=== PATIENT | male | born 1940 | race Caucasian/White ===

== ENCOUNTER → 2017-06-09 | Outpatient (CLI) | payer MEDICARE | END | disposition home or self-care (01) | LOC: Rad HDHVI 10:53 | PROVIDERS: ATTEND Internal Medicine Cardiovascular Disease | DX: I49.5 Sick sinus syndrome (principal) | CPT/HCPCS: 93880 ==

== ENCOUNTER → 2017-06-18 | Outpatient (CLI) | payer MEDICARE ==
[~2017-06-18] VITALS: Ht 177.8 cm; Wt 89.8 kg
[~2017-06-18] MED LIST: ADENOSINE 75 MG in GIVE UN-DILUTED 0 ML IV ONE; ADENOSINE 90 MG/30 ML INJ IV ONE
== END | disposition home or self-care (01) ==
LOC: Rad HDHVI 12:59
PROVIDERS: ATTEND Internal Medicine Cardiovascular Disease
DX: I10 Essential (primary) hypertension (principal); Z95.0 Presence of cardiac pacemaker
CPT/HCPCS: 78452; 93005; 93306; 96374; 96375; A9500; J0153

== ENCOUNTER → 2017-07-01 | Outpatient (CLI) | payer MEDICARE | END | disposition home or self-care (01) | LOC: Rad HDHVI 13:54 | PROVIDERS: ATTEND Internal Medicine Cardiovascular Disease | DX: M75.21 Bicipital tendinitis, right shoulder (principal); M19.011 Primary osteoarthritis, right shoulder; M51.34 Other intervertebral disc degeneration, thoracic region; I70.0 Atherosclerosis of aorta | CPT/HCPCS: 73200 ==

== ENCOUNTER → 2019-03-22 | Outpatient (CLI) | payer MEDICARE ==
[~2019-03-22] VITALS: Ht 177.8 cm; Wt 86.2 kg
[~2019-03-22] MED LIST changes: +ADENOSINE 72 MG in GIVE UN-DILUTED 0 ML IV ONE; -ADENOSINE 75 MG in GIVE UN-DILUTED 0 ML IV ONE
== END | disposition home or self-care (01) ==
LOC: Rad HDHVI 10:25
PROVIDERS: ATTEND Internal Medicine Cardiovascular Disease
DX: Z13.89 Encounter for screening for other disorder (principal); I25.2 Old myocardial infarction; I49.5 Sick sinus syndrome; E03.9 Hypothyroidism, unspecified; E78.5 Hyperlipidemia, unspecified
CPT/HCPCS: 78452; 93005; 96374; 96375; A9500; J0153

== ENCOUNTER → 2019-04-04 | Outpatient (CLI) | payer MEDICARE | END | disposition home or self-care (01) | LOC: Rad HDHVI 10:45 | PROVIDERS: ATTEND Internal Medicine Cardiovascular Disease | DX: I07.1 Rheumatic tricuspid insufficiency (principal); I25.2 Old myocardial infarction; R00.2 Palpitations | CPT/HCPCS: 93306 ==

== ENCOUNTER → 2019-05-10 | Outpatient (CLI) | payer MEDICARE ==
[~2019-05-10] MED LIST changes: -ADENOSINE 72 MG in GIVE UN-DILUTED 0 ML IV ONE; -ADENOSINE 90 MG/30 ML INJ IV ONE; +AMLO5TAB15 PO; +ATEN-60 PO; +CLON0.5T11 PO; +FLUO-125 PO; +GABA300C10 PO; +HYDR-4833 PO; +ROPI1TAB2 PO; +TRIAPOW43 PO
[2019-05-10 11:07] VITALS: BP 121/70
--- NOTE | 2019-05-10 11:07 | NUR ---
Pre-Op Discharge Summary: See e-MAR for any medications given for this visit. Pre-op orders received and carried out per MD of EKG, LABS and chest xrays. Patient given a copy of EKG with instructions to go to [facility] out patient for further follow up care.
[2019-05-10 11:25] VITALS: BP 127/71
[2019-05-10 12:18] LABS: INR 0.96 (0.9-1.15); Partial Thromboplastin Time 27.1 sec (23.64-32.05)
[2019-05-10 12:26] LABS: Basophils # (auto) 0 uL; Basophils % (auto) 0.3 % (0.0-2.0); Eosinophils # (auto) 0.1 uL; Eosinophils % (auto) 2.6 % (0.0-7.0); Hemoglobin 16.2 g/dL (13.5-17.5); Lymphocytes # (auto) 0.8 uL; Lymphocytes % (auto) 14.1 % (10.0-50.0); Mean Corpuscular Hemoglobin 30.6 pg (28.0-32.0); Mean Corpuscular Hgb Conc. 33.6 g/dL (32.0-36.0); Mean Corpuscular Volume 90.9 fL (80.0-100.0); Monocytes # (auto) 0.5 uL; Monocytes % (auto) 8.4 % (0.0-12.0); Neutrophils # (auto) 4.2 uL; Neutrophils % (auto) 74.6 % (37.0-80.0); Nucleated Red Blood Cells % 0.1 %; Platelet Count (auto) 196 10^3/uL (140-450); Red Blood Cells 5.28 10^6/uL (4.5-5.90); Red Cell Distribution Width 13.9 % (11.8-14.3); White Blood Cell 5.6 10^3/uL (4.4-10.8)
[2019-05-10 12:37] LABS: BUN/Creatinine Ratio 14.8; Calcium 8.8 mg/dL (8.5-10.1); Potassium 3.8 mmol/L (3.5-5.1)
== END | disposition home or self-care (01) ==
LOC: Rad HDHVI 10:46
PROVIDERS: ATTEND Internal Medicine Cardiovascular Disease
DX: Z01.812 Encounter for preprocedural laboratory examination (principal); D64.9 Anemia, unspecified; R79.1 Abnormal coagulation profile; I10 Essential (primary) hypertension; R94.31 Abnormal electrocardiogram [ECG] [EKG]
CPT/HCPCS: 36415; 80048; 85025; 85610; 85730; 93005; G0463

== ENCOUNTER 2019-05-12 09:35 | Day surgery (SDC) | payer MEDICARE ==
[~2019-05-12] VITALS: Ht 177.8 cm; Wt 85.3 kg
[2019-05-12] MEDS ORDERED: LIDOCAINE 2%HCL (LOCAL ANESTH.) INJ 20ML MDV ONE ×2 (10:41→13:02)
[2019-05-12] MEDS ORDERED: VANCOMYCIN HCL 1000 MG VL ONE (13:01)
[2019-05-12] MEDS ORDERED: MIDAZOLAM HCL 1MG/1ML-2 ML VIAL ONE (13:02)
[2019-05-12] MEDS ORDERED: ceFAZolin 1GM/50ML 50 ML IV ONE (13:02)
[2019-05-12] MEDS ORDERED: fentaNYL CITRATE 100 MCG/2 ML VL ONE (13:02)
[2019-05-12] MEDS ORDERED: VANCOMYCIN 1GM/250ML 250 ML IV ONE (13:46)
[2019-05-12] MEDS ORDERED: HYDROcodone-ACET 5/325MG TAB PO PRN (15:00)
[2019-05-12] MEDS ORDERED: ACETAMINOPHEN 325 MG TAB PO PRN (15:00)
== END 2019-05-12 16:10 | disposition home or self-care (01) ==
LOC: CATH 09:35
PROVIDERS: ATTEND Internal Medicine Cardiovascular Disease
DX: Z45.010 Encounter for checking and testing of cardiac pacemaker pulse generator [battery] (principal); I49.5 Sick sinus syndrome; I10 Essential (primary) hypertension; I73.9 Peripheral vascular disease, unspecified; J98.6 Disorders of diaphragm; E78.5 Hyperlipidemia, unspecified; M19.90 Unspecified osteoarthritis, unspecified site; Z96.611 Presence of right artificial shoulder joint; Z98.890 Other specified postprocedural states; Z91.09 Other allergy status, other than to drugs and biological substances; Z91.030 Bee allergy status; Z79.899 Other long term (current) drug therapy
CPT/HCPCS: 33228; C1785; J0690; J2250; J3010; J3370; J7030; 99152; 99153

== ENCOUNTER → 2020-01-27 | Outpatient (CLI) | payer MEDICARE ==
[~2020-01-27] MED LIST changes: -CLON0.5T11 PO; +CLON0.5T3 PO
[2020-01-27 15:59] LABS: Basophils # (auto) 0 10 ^3/uL (0-0.2); Basophils % (auto) 0.5 % (0.0-2.0); Eosinophils # (auto) 0.2 10 ^3/uL (0-0.8); Eosinophils % (auto) 2.4 % (0.0-7.0); Hematocrit 50.5 % (41.0-53.0); Hemoglobin 16.6 g/dL (13.5-17.5); Lymphocytes # (auto) 0.9 10 ^3/uL (0.4-5.4); Mean Corpuscular Hemoglobin 29.9 pg (28.0-32.0); Mean Corpuscular Hgb Conc. 32.8 g/dL (32.0-36.0); Mean Corpuscular Volume 91.3 fL (80.0-100.0); Monocytes # (auto) 0.4 10 ^3/uL (0-1.3); Neutrophils # (auto) 4.7 10 ^3/uL (1.6-8.6); Neutrophils % (auto) 75.1 % (37.0-80.0); Platelet Count (auto) 221 10^3/uL (140-450); Red Blood Cells 5.53 10^6/uL (4.5-5.90); Red Cell Distribution Width 14.7 % (11.8-14.3); White Blood Cell 6.2 10^3/uL (4.4-10.8)
[2020-01-27 16:29] LABS: Albumin 3.9 g/dL (3.4-5.0); BUN/Creatinine Ratio 14.7; Bilirubin, Total 0.8 mg/dL (0.2-1.0); Calcium 9.1 mg/dL (8.5-10.1); Total Protein 7.4 g/dL (6.4-8.2)
== END | disposition home or self-care (01) ==
LOC: LAB 12:14
PROVIDERS: ATTEND Internal Medicine Cardiovascular Disease
DX: Z01.812 Encounter for preprocedural laboratory examination (principal); I49.5 Sick sinus syndrome
CPT/HCPCS: 36415; 80053; 85025

== ENCOUNTER → 2020-04-27 | Outpatient (CLI) | payer MEDICARE | END | disposition home or self-care (01) | LOC: Rad HDHVI 12:38 | PROVIDERS: ATTEND Internal Medicine Cardiovascular Disease | DX: R06.02 Shortness of breath (principal); I51.7 Cardiomegaly; I70.0 Atherosclerosis of aorta | CPT/HCPCS: 71046 ==

== ENCOUNTER → 2020-06-18 | Outpatient (CLI) | payer MEDICARE ==
[~2020-06-18] VITALS: Ht 177.8 cm; Wt 90.7 kg
[~2020-06-18] MED LIST changes: +ADENOSINE 76 MG in GIVE UN-DILUTED 0 ML IV ONE; +ADENOSINE 90 MG/30 ML INJ IV ONE
[2020-06-18 16:09] LABS: Basophils # (auto) 0.1 10 ^3/uL (0-0.2); Basophils % (auto) 0.8 % (0.0-2.0); Eosinophils # (auto) 0.1 10 ^3/uL (0-0.8); Eosinophils % (auto) 1.7 % (0.0-7.0); Hematocrit 48.4 % (41.0-53.0); Hemoglobin 16.1 g/dL (13.5-17.5); Lymphocytes % (auto) 11.7 % (10.0-50.0); Mean Corpuscular Hemoglobin 30.7 pg (28.0-32.0); Mean Corpuscular Hgb Conc. 33.2 g/dL (32.0-36.0); Mean Corpuscular Volume 92.6 fL (80.0-100.0); Monocytes # (auto) 0.7 10 ^3/uL (0-1.3); Monocytes % (auto) 7.9 % (0.0-12.0); Neutrophils # (auto) 6.9 10 ^3/uL (1.6-8.6); Neutrophils % (auto) 77.9 % (37.0-80.0); Platelet Count (auto) 215 10^3/uL (140-450); Red Blood Cells 5.23 10^6/uL (4.5-5.90); Red Cell Distribution Width 14.5 % (11.8-14.3); White Blood Cell 8.8 10^3/uL (4.4-10.8)
[2020-06-18 16:12] LABS: Urine Blood Negative /uL (Negative); Urine Specific Gravity 1.006 (1.001-1.035)
[2020-06-18 16:34] LABS: Albumin 3.6 g/dL (3.4-5.0); Potassium 3.5 mmol/L (3.5-5.1)
[2020-06-18 16:35] LABS: Free T4 (Free Thyroxine) 1.17 ng/dL (0.89-1.76); Prostate Specific Antigen 0.37 ng/mL (0.0-4.0)
[2020-06-18 16:39] LABS: BUN/Creatinine Ratio 16.7; Bilirubin, Total 0.6 mg/dL (0.2-1.0); Total Protein 6.7 g/dL (6.4-8.2)
== END | disposition home or self-care (01) ==
LOC: Rad HDHVI 12:56
PROVIDERS: ATTEND Internal Medicine Cardiovascular Disease
DX: C61 Malignant neoplasm of prostate (principal); I10 Essential (primary) hypertension; D51.3 Other dietary vitamin B12 deficiency anemia; D64.9 Anemia, unspecified; E11.9 Type 2 diabetes mellitus without complications; E55.9 Vitamin D deficiency, unspecified; R00.2 Palpitations; R53.1 Weakness; R30.0 Dysuria; R07.9 Chest pain, unspecified; Z95.0 Presence of cardiac pacemaker; Z82.49 Family history of ischemic heart disease and other diseases of the circulatory system
CPT/HCPCS: 36415; 78452; 80053; 80061; 81003; 82306; 82607; 83036; 84153; 84403; 84439; 84443; 85025; 93005; 96374; 96375; A9500; J0153

== ENCOUNTER → 2020-06-20 | Outpatient (CLI) | payer MEDICARE ==
[~2020-06-20] MED LIST changes: -ADENOSINE 76 MG in GIVE UN-DILUTED 0 ML IV ONE; -ADENOSINE 90 MG/30 ML INJ IV ONE
== END | disposition home or self-care (01) ==
LOC: Rad HDHVI 10:47
PROVIDERS: ATTEND Internal Medicine Cardiovascular Disease
DX: I49.5 Sick sinus syndrome (principal); R06.02 Shortness of breath; R42 Dizziness and giddiness
CPT/HCPCS: 93306

== ENCOUNTER → 2020-09-03 | Outpatient (CLI) | payer MEDICARE ==
[~2020-09-03] MED LIST changes: +CAR25T PO; +CLON0.5T PO; +CYCL10TA6 PO; +DICL-176 PO; +FLUT1AER3 IN
[2020-09-03 08:43] VITALS: BP 140/69
[2020-09-03 09:03] VITALS: BP 130/72
[2020-09-03 12:24] LABS: Basophils # (auto) 0 10 ^3/uL (0-0.2); Basophils % (auto) 0.5 % (0.0-2.0); Eosinophils # (auto) 0.2 10 ^3/uL (0-0.8); Eosinophils % (auto) 2.3 % (0.0-7.0); Hematocrit 47.2 % (41.0-53.0); Hemoglobin 16.1 g/dL (13.5-17.5); Lymphocytes # (auto) 1.1 10 ^3/uL (0.4-5.4); Lymphocytes % (auto) 13.8 % (10.0-50.0); Mean Corpuscular Hemoglobin 32.3 pg (28.0-32.0); Mean Corpuscular Volume 94.8 fL (80.0-100.0); Monocytes # (auto) 0.5 10 ^3/uL (0-1.3); Monocytes % (auto) 6.7 % (0.0-12.0); Neutrophils # (auto) 6.3 10 ^3/uL (1.6-8.6); Neutrophils % (auto) 76.7 % (37.0-80.0); Platelet Count (auto) 232 10^3/uL (140-450); Red Blood Cells 4.98 10^6/uL (4.5-5.90); Red Cell Distribution Width 13.6 % (11.8-14.3); White Blood Cell 8.3 10^3/uL (4.4-10.8)
[2020-09-03 12:26] LABS: Potassium 3.3 mmol/L (3.5-5.1)
[2020-09-03 12:33] LABS: BUN/Creatinine Ratio 20.9; Calcium 8.6 mg/dL (8.5-10.1)
[2020-09-03 12:43] LABS: INR 0.99 (0.9-1.15); Partial Thromboplastin Time 25.8 sec (23.0-31.2)
== END | disposition home or self-care (01) ==
LOC: Rad HDHVI 08:04
PROVIDERS: ATTEND Internal Medicine Cardiovascular Disease
DX: Z01.812 Encounter for preprocedural laboratory examination (principal); J84.10 Pulmonary fibrosis, unspecified; J98.4 Other disorders of lung; I10 Essential (primary) hypertension; I48.91 Unspecified atrial fibrillation; R06.02 Shortness of breath; J98.11 Atelectasis; I51.7 Cardiomegaly; I70.0 Atherosclerosis of aorta; M43.22 Fusion of spine, cervical region; M43.26 Fusion of spine, lumbar region; Z95.0 Presence of cardiac pacemaker
CPT/HCPCS: 36415; 71046; 80048; 85025; 85610; 85730; 93005; G0463

== ENCOUNTER 2020-09-06 06:52 | Day surgery (SDC) | payer MEDICARE ==
[~2020-09-06] VITALS: Ht 177.8 cm; Wt 90.7 kg
[~2020-09-06 06:52] MED LIST changes: -CLON0.5T3 PO; -FLUO-125 PO; -GABA300C10 PO; -HYDR-4833 PO; -TRIAPOW43 PO
[2020-09-06] MEDS ORDERED: IOHEXOL 350 MG/ML 100ML IJ ONE ×2 (07:25→09:50)
[2020-09-06] MEDS ORDERED: HEPARIN IN NS 1000Units/500mL 1,500 ML ONE (07:26)
[2020-09-06] MEDS ORDERED: LIDOCAINE 2%HCL (LOCAL ANESTH.) INJ 20ML MDV ONE ×2 (07:26→10:19)
[2020-09-06] MEDS ORDERED: fentaNYL CITRATE 100 MCG/2 ML VL ONE (09:38)
[2020-09-06] MEDS ORDERED: ANGIOMAX 250 MG VIAL IV ONE (09:38)
[2020-09-06] MEDS ORDERED: MIDAZOLAM HCL 1MG/1ML-2 ML VIAL ONE ×2 (09:39→10:19)
[2020-09-06] MEDS ORDERED: SODIUM CHL 0.9% 0 ML ONE (09:39)
[2020-09-06] MEDS ORDERED: diphenhdrAMINE HCL 50 MG/1 ML VL ONE (09:41)
[2020-09-06] MEDS ORDERED: IODIXANOL 320MG/ML 100ML BTL IV ONE (09:50)
[2020-09-06] MEDS ORDERED: HYDROcodone-ACET 5/325MG TAB PO PRN (11:30)
[2020-09-06] MEDS ORDERED: ACETAMINOPHEN 500 MG TAB PO PRN (11:30)
[2020-09-06] MEDS ORDERED: ONDANSETRON HCL 4 MG/2 ML VIAL IV PRN (11:30)
== END 2020-09-06 13:35 | disposition home or self-care (01) ==
LOC: CATH 06:52
PROVIDERS: ATTEND Internal Medicine Cardiovascular Disease
DX: R07.89 Other chest pain (principal); I10 Essential (primary) hypertension; E78.5 Hyperlipidemia, unspecified; J44.9 Chronic obstructive pulmonary disease, unspecified; I25.2 Old myocardial infarction; Z88.8 Allergy status to other drugs, medicaments and biological substances; Z20.828 Contact with and (suspected) exposure to other viral communicable diseases; Z98.890 Other specified postprocedural states; Z79.899 Other long term (current) drug therapy; Z91.048 Other nonmedicinal substance allergy status
CPT/HCPCS: 93460; C1751; C1760; C1894; J1200; J1644; J2250; J3010; Q9967; U0003; 99152; 99153

== ENCOUNTER → 2021-04-05 | Outpatient (CLI) | payer MEDICARE ==
[~2021-04-05] MED LIST changes: +AMLO-489 PO; -AMLO5TAB15 PO; -DICL-176 PO; +DICL75TA3 PO; +IOHEXOL 350 MG/ML 100ML IJ ONE; -ROPI1TAB2 PO; +ROPI1TAB4 PO
[2021-04-05 11:54] VITALS: BP 131/75
[2021-04-05 13:39] VITALS: BP 149/87
== END | disposition home or self-care (01) ==
LOC: Rad HDHVI 11:39
PROVIDERS: ATTEND Internal Medicine Cardiovascular Disease
DX: J84.10 Pulmonary fibrosis, unspecified (principal)
CPT/HCPCS: 71260; G0463; Q9967

== ENCOUNTER → 2021-05-21 | Outpatient (CLI) | payer MEDICARE ==
[~2021-05-21] MED LIST changes: -IOHEXOL 350 MG/ML 100ML IJ ONE
== END | disposition home or self-care (01) ==
LOC: Rad HDHVI 10:03
PROVIDERS: ATTEND Internal Medicine Cardiovascular Disease
DX: R00.2 Palpitations (principal); R06.02 Shortness of breath
CPT/HCPCS: 93306

== ENCOUNTER → 2021-09-09 | Outpatient (CLI) | payer MEDICARE ==
[~2021-09-09] MED LIST changes: +CYCL-839 PO; -CYCL10TA6 PO
== END | disposition home or self-care (01) ==
LOC: Rad HDHVI 09:42
PROVIDERS: ATTEND Internal Medicine Cardiovascular Disease
DX: E78.5 Hyperlipidemia, unspecified (principal)
CPT/HCPCS: 93970

== ENCOUNTER → 2022-04-23 | Outpatient (CLI) | payer MEDICARE | END | disposition home or self-care (01) | LOC: Rad HDHVI 13:25 | PROVIDERS: ATTEND Internal Medicine Cardiovascular Disease | DX: M16.12 Unilateral primary osteoarthritis, left hip (principal); M76.892 Other specified enthesopathies of left lower limb, excluding foot; M85.88 Other specified disorders of bone density and structure, other site; M48.061 Spinal stenosis, lumbar region without neurogenic claudication | CPT/HCPCS: 72131; 73700 ==

== ENCOUNTER → 2022-09-09 | Outpatient (CLI) | payer MEDICARE | END | disposition home or self-care (01) | LOC: Rad HDHVI 12:54 | PROVIDERS: ATTEND Internal Medicine Cardiovascular Disease | DX: I08.3 Combined rheumatic disorders of mitral, aortic and tricuspid valves (principal); R06.02 Shortness of breath; I10 Essential (primary) hypertension | CPT/HCPCS: 93306 ==

== ENCOUNTER → 2022-09-17 | Outpatient (CLI) | payer MEDICARE | END | disposition home or self-care (01) | LOC: Rad HDHVI 12:45 | PROVIDERS: ATTEND Internal Medicine Cardiovascular Disease | DX: I65.23 Occlusion and stenosis of bilateral carotid arteries (principal); I10 Essential (primary) hypertension; E78.00 Pure hypercholesterolemia, unspecified | CPT/HCPCS: 93880 ==

== ENCOUNTER → 2022-11-21 | Outpatient (CLI) | payer MEDICARE | END | disposition home or self-care (01) | LOC: LAB 11:27 | PROVIDERS: ATTEND Internal Medicine | DX: I11.0 Hypertensive heart disease with heart failure (principal); I50.33 Acute on chronic diastolic (congestive) heart failure; R73.03 Prediabetes; E29.1 Testicular hypofunction | CPT/HCPCS: 36415; 82043; 83036; 83880; 84403; 84478 ==

== ENCOUNTER → 2023-01-29 | Outpatient (CLI) | payer OTHER | END | disposition home or self-care (01) | LOC: Rad HDHVI 09:08 | PROVIDERS: ATTEND Internal Medicine Cardiovascular Disease | DX: I35.8 Other nonrheumatic aortic valve disorders (principal); I10 Essential (primary) hypertension | CPT/HCPCS: 93306 ==

== ENCOUNTER → 2023-03-30 | Outpatient (CLI) | payer OTHER ==
[~2023-03-30] MED LIST changes: -AMLO-489 PO; +AMLO1TAB22 PO; +CLON-1003 PO; -CLON0.5T PO
[2023-03-30 09:53] LABS: Albumin 3.6 g/dL (3.4-5.0); Calcium 8.7 mg/dL (8.5-10.1); Potassium 4.3 mmol/L (3.5-5.1)
[2023-03-30 10:00] LABS: BUN/Creatinine Ratio 16.8 (10.0-20.0); Bilirubin, Direct 0.1 mg/dL (0-0.2); Bilirubin, Total 0.5 mg/dL (0.2-1.0); Total Protein 6.6 g/dL (6.4-8.2)
== END | disposition home or self-care (01) ==
LOC: LAB 09:03
PROVIDERS: ATTEND Internal Medicine
DX: E78.5 Hyperlipidemia, unspecified (principal); R73.03 Prediabetes
CPT/HCPCS: 36415; 80053; 80061; 80076

== ENCOUNTER 2023-05-11 11:19 | Emergency (ER) | payer OTHER ==
[~2023-05-11] VITALS: Ht 177.8 cm; Wt 90.0 kg
[2023-05-11 12:09] LABS: Basophils # (auto) 0.1 10 ^3/uL (0-0.2); Basophils % (auto) 0.8 % (0.0-2.0); Eosinophils # (auto) 0.5 10 ^3/uL (0-0.8); Eosinophils % (auto) 5.8 % (0.0-7.0); Hematocrit 44.5 % (41.0-53.0); Hemoglobin 14.8 g/dL (13.5-17.5); Lymphocytes # (auto) 1.2 10 ^3/uL (0.4-5.4); Lymphocytes % (auto) 14.7 % (10.0-50.0); Mean Corpuscular Hemoglobin 31.4 pg (28.0-32.0); Mean Corpuscular Hgb Conc. 33.2 g/dL (32.0-36.0); Mean Corpuscular Volume 94.5 fL (80.0-100.0); Monocytes # (auto) 0.5 10 ^3/uL (0-1.3); Monocytes % (auto) 6.4 % (0.0-12.0); Neutrophils # (auto) 6.1 10 ^3/uL (1.6-8.6); Neutrophils % (auto) 72.3 % (37.0-80.0); Nucleated Red Blood Cells % 0.1 %; Red Blood Cells 4.71 10^6/uL (4.5-5.90); White Blood Cell 8.4 10^3/uL (4.4-10.8)
[2023-05-11 12:22] LABS: Albumin 3.8 g/dL (3.4-5.0); Calcium 8.6 mg/dL (8.5-10.1); Potassium 4.6 mmol/L (3.5-5.1)
[2023-05-11 12:26] LABS: Bilirubin, Total 0.4 mg/dL (0.2-1.0); Total Protein 6.6 g/dL (6.4-8.2)
[2023-05-11 14:38] VITALS: BP 164/78
[2023-05-11 14:39] VITALS: PULSE 73; RESP 16; O2SAT 97
== END 2023-05-11 14:43 | disposition home or self-care (01) ==
LOC: ER 11:19
DX: I10 Essential (primary) hypertension (principal); Z79.899 Other long term (current) drug therapy; Z91.030 Bee allergy status
CPT/HCPCS: 36415; 71045; 80053; 83880; 84484; 85025; 93005

== ENCOUNTER 2023-05-26 18:00 | Emergency (ER) | payer OTHER ==
[~2023-05-26] VITALS: Ht 177.8 cm; Wt 94.5 kg
[2023-05-26 18:43] VITALS: BP 144/75; PULSE 72; RESP 18; O2SAT 96
[2023-05-26 19:45] LABS: Urine Bacteria FEW /hpf (None Seen); Urine Blood Negative /uL (Negative); Urine Clarity Clear (Clear); Urine Color Colorless (Yellow); Urine Protein, UAD Negative (Negative); Urine Specific Gravity 1.004 (1.001-1.035); Urine Urobilinogen Normal (Negative); Urine WBC <1 /hpf (0 - 3); Urine pH 6.5 (5.0-8.0)
== END 2023-05-26 22:07 | disposition left against medical advice (07) ==
LOC: ER 18:00
DX: S90.112D Contusion of left great toe without damage to nail, subsequent encounter (principal); Z91.040 Latex allergy status; Z91.030 Bee allergy status; Z79.899 Other long term (current) drug therapy; W22.8XXD Striking against or struck by other objects, subsequent encounter
CPT/HCPCS: 73660; 81001

== ENCOUNTER → 2023-07-06 | Outpatient (CLI) | payer OTHER ==
[2023-07-06 10:48] LABS: Triglycerides 195 mg/dL (< 150)
[2023-07-06 10:49] LABS: LDL Cholesterol 125 mg/dL (< 100)
[2023-07-06 10:50] LABS: Cholesterol 204 mg/dL (< 200)
[2023-07-06 10:51] LABS: HDL Cholesterol 48 mg/dL (40-59)
== END | disposition home or self-care (01) ==
LOC: LAB 09:45
PROVIDERS: ATTEND Internal Medicine
DX: I10 Essential (primary) hypertension (principal); E78.5 Hyperlipidemia, unspecified
CPT/HCPCS: 36415; 80061; 83036

== ENCOUNTER → 2023-08-05 | Outpatient (CLI) | payer OTHER ==
[2023-08-05 14:23] LABS: Erythrocyte Sedimentation Rate 7 mm/hr (0-20)
[2023-08-05 14:46] LABS: Uric Acid 7.2 mg/dL (3.7-9.2)
[2023-08-05 15:08] LABS: Albumin 4.8 g/dL (3.2-4.8); Bilirubin, Direct 0.2 mg/dL (<0.3); Bilirubin, Total 0.7 mg/dL (0.2-1.0); Total Protein 7.1 g/dL (5.7-8.2)
== END | disposition home or self-care (01) ==
LOC: LAB 13:31
PROVIDERS: ATTEND Internal Medicine
DX: R73.03 Prediabetes (principal)
CPT/HCPCS: 36415; 80076; 84550; 85652; 86431

== ENCOUNTER → 2023-09-14 | Outpatient (CLI) | payer OTHER ==
[2023-09-14 12:34] LABS: Albumin 4.7 g/dL (3.2-4.8); Bilirubin, Direct 0.2 mg/dL (<0.3); Bilirubin, Total 0.5 mg/dL (0.2-1.0); Total Protein 6.9 g/dL (5.7-8.2)
== END | disposition home or self-care (01) ==
LOC: LAB 11:32
PROVIDERS: ATTEND Internal Medicine
DX: E78.5 Hyperlipidemia, unspecified (principal)
CPT/HCPCS: 36415; 80061; 80076

== ENCOUNTER → 2024-04-12 | Outpatient (CLI) | payer OTHER ==
[~2024-04-12] MED LIST changes: -ROPI1TAB4 PO; +ROPI1TAB78 PO
[2024-04-12 09:45] LABS: Basophils # (auto) 0 10 ^3/uL (0-0.2); Basophils % (auto) 0.5 % (0.0-2.0); Eosinophils # (auto) 0.2 10 ^3/uL (0-0.8); Eosinophils % (auto) 4.5 % (0.0-7.0); Hematocrit 43.3 % (41.0-53.0); Hemoglobin 14.6 g/dL (13.5-17.5); Lymphocytes # (auto) 1.2 10 ^3/uL (0.4-5.4); Lymphocytes % (auto) 22.1 % (10.0-50.0); Mean Corpuscular Hgb Conc. 33.7 g/dL (32.0-36.0); Mean Corpuscular Volume 92.1 fL (80.0-100.0); Monocytes # (auto) 0.4 10 ^3/uL (0-1.3); Neutrophils # (auto) 3.5 10 ^3/uL (1.6-8.6); Neutrophils % (auto) 64.9 % (37.0-80.0); Red Blood Cells 4.71 10^6/uL (4.5-5.90); Red Cell Distribution Width 13.6 % (11.8-14.3); White Blood Cell 5.4 10^3/uL (4.4-10.8)
[2024-04-12 10:21] LABS: Alanine Aminotransferase 10 U/L (7-40); Albumin 4.6 g/dL (3.2-4.8); Alkaline Phosphatase 75 U/L (46-116); Anion Gap 4 (5-15); BUN/Creatinine Ratio 11.9 (10.0-20.0); Blood Urea Nitrogen 16 mg/dL (9-23); Calcium 9.7 mg/dL (8.5-10.1); Carbon Dioxide 32 mmol/L (20-30); Chloride 101 mmol/L (98-107); Glucose 91 mg/dL (74-106); Sodium 137 mmol/L (136-145)
[2024-04-12 10:22] LABS: Aspartate Aminotransferase 35 U/L (13-40); Bilirubin, Total 0.6 mg/dL (0.2-1.0); Total Protein 6.7 g/dL (5.7-8.2)
[2024-04-12 10:35] LABS: Erythrocyte Sedimentation Rate 2 mm/hr (0-20)
[2024-04-13 08:07] LABS: Rheumatoid Arthritis Factor 12.5 IU/mL (<14.0)
[2024-04-13 10:07] LABS: Anti-Nuclear Antibody Direct Negative (Negative)
[2024-04-14 09:02] LABS: Hepatitis B Surface Antigen Negative (Negative)
[2024-04-14 09:24] LABS: Hepatitis B Core IgM Negative
[2024-04-14 12:06] LABS: CCP IgG/IgA Antibody 2 units (0-19)
== END | disposition home or self-care (01) ==
LOC: LAB 09:26
PROVIDERS: ATTEND Internal Medicine Rheumatology
DX: L40.50 Arthropathic psoriasis, unspecified (principal); Z79.899 Other long term (current) drug therapy; R53.83 Other fatigue
CPT/HCPCS: 36415; 80053; 85025; 85652; 86038; 86141; 86200; 86431; 86705; 87340

== ENCOUNTER → 2024-04-25 | Outpatient (CLI) | payer OTHER ==
[2024-04-25 10:17] LABS: Alanine Aminotransferase < 9 U/L (7-40); Alkaline Phosphatase 66 U/L (46-116); Anion Gap 4 (5-15); Blood Urea Nitrogen 20 mg/dL (9-23); Calcium 9.5 mg/dL (8.7-10.4); Carbon Dioxide 30 mmol/L (20-30); Chloride 102 mmol/L (98-107); Glucose 91 mg/dL (74-106); LDL Cholesterol 114 mg/dL (< 100); Potassium 4.1 mmol/L (3.5-5.1); Sodium 136 mmol/L (136-145); Triglycerides 177 mg/dL (< 150)
[2024-04-25 10:18] LABS: Albumin 4.4 g/dL (3.2-4.8); Aspartate Aminotransferase 16 U/L (13-40); Bilirubin, Total 0.5 mg/dL (0.2-1.0); Cholesterol 188 mg/dL (< 200); HDL Cholesterol 50 mg/dL (40-59); Total Protein 6.4 g/dL (5.7-8.2)
[2024-04-25 10:48] LABS: Erythrocyte Sedimentation Rate 2 mm/hr (0-20)
== END | disposition home or self-care (01) ==
LOC: LAB 09:14
PROVIDERS: ATTEND Internal Medicine
DX: R73.03 Prediabetes (principal); J44.9 Chronic obstructive pulmonary disease, unspecified; M06.9 Rheumatoid arthritis, unspecified
CPT/HCPCS: 36415; 80053; 80061; 83036; 85652

== ENCOUNTER → 2024-05-04 | Outpatient (CLI) | payer OTHER ==
[2024-05-04 12:37] LABS: Chloride 99 mmol/L (98-107); Potassium 4.4 mmol/L (3.5-5.1); Sodium 136 mmol/L (136-145)
[2024-05-04 12:38] LABS: Anion Gap 6 (5-15); Calcium 9.7 mg/dL (8.7-10.4); Carbon Dioxide 31 mmol/L (20-30)
[2024-05-04 12:43] LABS: BUN/Creatinine Ratio 13.8 (10.0-20.0); Blood Urea Nitrogen 17 mg/dL (9-23); Glucose 80 mg/dL (74-106)
== END | disposition home or self-care (01) ==
LOC: LAB 11:32
PROVIDERS: ATTEND Internal Medicine
DX: J44.9 Chronic obstructive pulmonary disease, unspecified (principal); N18.30 Chronic kidney disease, stage 3 unspecified
CPT/HCPCS: 36415; 80048; 84403

== ENCOUNTER → 2024-07-19 | Outpatient (CLI) | payer OTHER ==
[2024-07-19 12:01] LABS: Anion Gap 4 (5-15); Carbon Dioxide 32 mmol/L (20-31); Chloride 101 mmol/L (98-107); Sodium 137 mmol/L (136-145)
[2024-07-19 12:02] LABS: Calcium 9.7 mg/dL (8.7-10.4)
[2024-07-19 12:07] LABS: BUN/Creatinine Ratio 15.6 (10.0-20.0); Blood Urea Nitrogen 19 mg/dL (9-23); Glucose 77 mg/dL (74-106)
== END | disposition home or self-care (01) ==
LOC: LAB 11:21
PROVIDERS: ATTEND Internal Medicine
DX: R73.03 Prediabetes (principal); N18.30 Chronic kidney disease, stage 3 unspecified
CPT/HCPCS: 36415; 80048

== ENCOUNTER → 2024-08-03 | Outpatient (CLI) | payer OTHER ==
[2024-08-03 13:59] LABS: Basophils # (auto) 0 10 ^3/uL (0-0.2); Basophils % (auto) 0.3 % (0.0-2.0); Eosinophils # (auto) 0.2 10 ^3/uL (0-0.8); Hematocrit 42.4 % (41.0-53.0); Hemoglobin 14.3 g/dL (13.5-17.5); Lymphocytes # (auto) 0.9 10 ^3/uL (0.4-5.4); Mean Corpuscular Hemoglobin 31.6 pg (28.0-32.0); Mean Corpuscular Hgb Conc. 33.8 g/dL (32.0-36.0); Mean Corpuscular Volume 93.5 fL (80.0-100.0); Monocytes # (auto) 0.4 10 ^3/uL (0-1.3); Monocytes % (auto) 6.2 % (0.0-12.0); Neutrophils # (auto) 4.7 10 ^3/uL (1.6-8.6); Neutrophils % (auto) 76.5 % (37.0-80.0); Platelet Count (auto) 210 10^3/uL (140-450); Red Blood Cells 4.53 10^6/uL (4.5-5.90); Red Cell Distribution Width 13.5 % (11.8-14.3); White Blood Cell 6.1 10^3/uL (4.4-10.8)
[2024-08-03 14:37] LABS: Erythrocyte Sedimentation Rate 5 mm/hr (0-20)
[2024-08-03 14:46] LABS: Alkaline Phosphatase 83 U/L (46-116); Anion Gap 5 (5-15); Blood Urea Nitrogen 21 mg/dL (9-23); CRP High Sensitivity 0.09 mg/dL (<1.0); Calcium 9.4 mg/dL (8.7-10.4); Carbon Dioxide 31 mmol/L (20-31); Chloride 102 mmol/L (98-107); Glucose 123 mg/dL (74-106); Sodium 138 mmol/L (136-145)
[2024-08-03 14:47] LABS: Albumin 4.4 g/dL (3.2-4.8); Aspartate Aminotransferase 17 U/L (13-40); Bilirubin, Total 0.4 mg/dL (0.2-1.0); Total Protein 6.8 g/dL (5.7-8.2)
[2024-08-03 14:49] LABS: Alanine Aminotransferase < 9 U/L (7-40)
== END | disposition home or self-care (01) ==
LOC: LAB 13:28
PROVIDERS: ATTEND Internal Medicine Rheumatology
DX: M06.4 Inflammatory polyarthropathy (principal); L40.50 Arthropathic psoriasis, unspecified; M32.10 Systemic lupus erythematosus, organ or system involvement unspecified; Z79.899 Other long term (current) drug therapy
CPT/HCPCS: 36415; 80053; 85025; 85652; 86141

== ENCOUNTER → 2024-09-12 | Outpatient (CLI) | payer OTHER ==
[2024-09-12 10:04] LABS: Basophils # (auto) 0 10 ^3/uL (0-0.2); Basophils % (auto) 0.5 % (0.0-2.0); Eosinophils # (auto) 0.2 10 ^3/uL (0-0.8); Eosinophils % (auto) 4.9 % (0.0-7.0); Hematocrit 43.1 % (41.0-53.0); Hemoglobin 14.7 g/dL (13.5-17.5); Lymphocytes % (auto) 23.3 % (10.0-50.0); Mean Corpuscular Hemoglobin 31.8 pg (28.0-32.0); Mean Corpuscular Volume 93.3 fL (80.0-100.0); Monocytes # (auto) 0.4 10 ^3/uL (0-1.3); Monocytes % (auto) 8.3 % (0.0-12.0); Neutrophils # (auto) 2.7 10 ^3/uL (1.6-8.6); Nucleated Red Blood Cells % 0.1 %; Platelet Count (auto) 184 10^3/uL (140-450); Red Blood Cells 4.62 10^6/uL (4.5-5.90); Red Cell Distribution Width 13.1 % (11.8-14.3); White Blood Cell 4.3 10^3/uL (4.4-10.8)
[2024-09-12 10:15] LABS: Albumin 4.5 g/dL (3.2-4.8); Alkaline Phosphatase 85 U/L (46-116); Anion Gap 5 (5-15); Aspartate Aminotransferase 14 U/L (13-40); Blood Urea Nitrogen 21 mg/dL (9-23); CRP High Sensitivity 0.15 mg/dL (<1.0); Chloride 102 mmol/L (98-107); Glucose 91 mg/dL (74-106); Potassium 4.1 mmol/L (3.5-5.1); Sodium 140 mmol/L (136-145); Triglycerides 118 mg/dL (< 150)
[2024-09-12 10:16] LABS: Bilirubin, Direct 0.2 mg/dL (<0.3); Bilirubin, Total 0.6 mg/dL (0.2-1.0); Cholesterol 188 mg/dL (< 200); HDL Cholesterol 48 mg/dL (40-59); Total Protein 6.8 g/dL (5.7-8.2)
[2024-09-12 10:18] LABS: Alanine Aminotransferase < 9 U/L (7-40); Carbon Dioxide 33 mmol/L (20-31); LDL Cholesterol 119 mg/dL (< 100)
[2024-09-12 11:24] LABS: Erythrocyte Sedimentation Rate 4 mm/hr (0-20)
== END | disposition home or self-care (01) ==
LOC: LAB 08:55
PROVIDERS: ATTEND Internal Medicine
DX: Z11.1 Encounter for screening for respiratory tuberculosis (principal); E78.5 Hyperlipidemia, unspecified; L40.50 Arthropathic psoriasis, unspecified; M05.79 Rheumatoid arthritis with rheumatoid factor of multiple sites without organ or systems involvement; M16.9 Osteoarthritis of hip, unspecified; Z79.899 Other long term (current) drug therapy
CPT/HCPCS: 36415; 80053; 80061; 80076; 84550; 85025; 85652; 86141

== ENCOUNTER → 2024-10-12 | Outpatient (CLI) | payer OTHER ==
[2024-10-12 10:45] LABS: Alkaline Phosphatase 73 U/L (46-116)
[2024-10-12 10:46] LABS: Albumin 4.2 g/dL (3.2-4.8); Aspartate Aminotransferase 21 U/L (13-40); Bilirubin, Direct 0.2 mg/dL (<0.3); Bilirubin, Total 0.7 mg/dL (0.2-1.0); Total Protein 6.3 g/dL (5.7-8.2)
[2024-10-12 10:48] LABS: Alanine Aminotransferase < 9 U/L (7-40)
== END | disposition home or self-care (01) ==
LOC: LAB 09:59
PROVIDERS: ATTEND Internal Medicine
DX: E78.5 Hyperlipidemia, unspecified (principal)
CPT/HCPCS: 36415; 80076

== ENCOUNTER → 2024-10-21 | Outpatient (CLI) | payer OTHER | END | disposition home or self-care (01) | LOC: Rad HDHVI 10:05 | PROVIDERS: ATTEND Internal Medicine Cardiovascular Disease | DX: R06.02 Shortness of breath (principal) | CPT/HCPCS: 93306 ==

== ENCOUNTER → 2024-10-24 | Outpatient (CLI) | payer OTHER | END | disposition home or self-care (01) | LOC: Rad HDHVI 13:33 | PROVIDERS: ATTEND Internal Medicine Cardiovascular Disease | DX: L81.9 Disorder of pigmentation, unspecified (principal) | CPT/HCPCS: 93925 ==

== ENCOUNTER → 2024-10-31 | Outpatient (CLI) | payer OTHER ==
[2024-10-31 13:28] LABS: Basophils # (auto) 0 10 ^3/uL (0-0.2); Basophils % (auto) 0.6 % (0.0-2.0); Eosinophils # (auto) 0.2 10 ^3/uL (0-0.8); Eosinophils % (auto) 3.2 % (0.0-7.0); Hematocrit 44.5 % (41.0-53.0); Lymphocytes # (auto) 0.8 10 ^3/uL (0.4-5.4); Lymphocytes % (auto) 13.8 % (10.0-50.0); Mean Corpuscular Hemoglobin 31.5 pg (28.0-32.0); Mean Corpuscular Hgb Conc. 33.6 g/dL (32.0-36.0); Mean Corpuscular Volume 93.5 fL (80.0-100.0); Monocytes # (auto) 0.3 10 ^3/uL (0-1.3); Monocytes % (auto) 4.9 % (0.0-12.0); Neutrophils # (auto) 4.8 10 ^3/uL (1.6-8.6); Neutrophils % (auto) 77.5 % (37.0-80.0); Platelet Count (auto) 199 10^3/uL (140-450); Red Blood Cells 4.75 10^6/uL (4.5-5.90); Red Cell Distribution Width 13.4 % (11.8-14.3); White Blood Cell 6.1 10^3/uL (4.4-10.8)
[2024-10-31 14:42] LABS: Alanine Aminotransferase 10 U/L (7-40); Albumin 4.8 g/dL (3.2-4.8); Alkaline Phosphatase 88 U/L (46-116); Anion Gap 6 (5-15); Aspartate Aminotransferase 20 U/L (13-40); BUN/Creatinine Ratio 15.6 (10.0-20.0); Blood Urea Nitrogen 19 mg/dL (9-23); Calcium 9.8 mg/dL (8.7-10.4); Carbon Dioxide 31 mmol/L (20-31); Chloride 101 mmol/L (98-107); Sodium 138 mmol/L (136-145)
[2024-10-31 14:43] LABS: Bilirubin, Total 0.5 mg/dL (0.2-1.0); Glucose 149 mg/dL (74-106); Total Protein 6.8 g/dL (5.7-8.2)
== END | disposition home or self-care (01) ==
LOC: LAB 13:06
PROVIDERS: ATTEND Internal Medicine
DX: J44.9 Chronic obstructive pulmonary disease, unspecified (principal); R06.02 Shortness of breath
CPT/HCPCS: 36415; 80053; 83880; 85025

== ENCOUNTER 2025-04-07 07:53 | Emergency (ER) | payer OTHER ==
[~2025-04-07] VITALS: Ht 177.8 cm; Wt 96.1 kg
--- NOTE | 2025-04-07 08:22 | ED.PDOC ---
Back pain HPI HPI Comments A 84 YEAR-OLD MALE PRESENTS TO THE ED WITH A CHIEF COMPLAINT OF NECK PAIN OF X2 DAYS AGO. PATIENT STATES THAT HE ATE A SPICY SAUSAGE X2 DAYS AGO AND HAS SINCE FELT DISCOMFORT IN THE UPPER ESOPHAGUS TO THE ANTERIOR NECK. PATIENT HAS A PMHX OF NECK FUSION AND STATES THAT PAIN RADIATES TO THE UPPER BACK. PATIENT HAS NO FURTHER COMPLAINTS AT THIS TIME AND OTHERWISE DENIES FURTHER ASSOCIATED SYMPTOMS OF CHEST PAIN, HEADACHE, N/V, SOB, FEVER, OR COUGH. PATIENT IS ALERT, ORIENTED X 4, AND HAS STEADY GAIT. Chief Complaint: Neck Pain Time Seen by MD: 08:10 Reviewed Notes: Nurses Notes, Medications, Allergies Allergies: Coded Allergies: Bee Venom (Verified Allergy, Unknown, 05/10/19) Latex (Verified Allergy, Unknown, 05/26/23) Wasp Venom Protein (Verified Allergy, Unknown, 05/10/19) Uncoded Allergies: COLD FLUIDS (Allergy, Unknown, 09/03/20) verified by patient UV light (Allergy, Unknown, 05/10/19) adhesive (Allergy, Unknown, 09/03/20) verified by patient horse serum (Allergy, Unknown, 05/10/19) Home Meds Reported Medications Diclofenac Sodium (Diclofenac Sodium Dr) 75 Mg Tab, 75 MG PO QHSP PRN for PAIN SCALE 1 THRU 6, TAB 09/03/20 Cyclobenzaprine Hcl (Cyclobenzaprine Hcl) 10 Mg Tab, 10 MG PO BIDP PRN for PAIN SCALE 1 THRU 6, TAB 09/03/20 Levodopa W/Carbidopa (SINEMET 25/100MG) 1 Tab Tb, 1 TAB PO BID, TAB 09/03/20 Clonazepam (Klonopin) 0.5 Mg Tab, 0.5 MG PO TIDPRN PRN for ANXIETY, TAB 09/03/20 Ndmruoimnom-Ewbtkixjqooi-Leysm (Trelegy Ellipta 100-62.5-25 Mcg/INH) 1 Aer Aer, 1 AER IN DAILY, AER 09/03/20 Amlodipine Besylate (Amlodipine Besylate) 5 Mg Tab, 5 MG PO BID for 30 Days, MG 05/10/19 Atenolol (Atenolol) 25 Mg Tab, 25 MG PO BID for 30 Days, MG 05/10/19 Ropinirole Hydrochloride (Ropinirole Hcl) 1 Mg Tab, 1 MG PO HSPRN, TAB 05/10/19 Information Source: Patient Mode of Arrival: Ambulatory Timing: Days (X1) Duration: Since onset, Days Location of Back pain: (B) Cervical Severity: Moderate Prehospital treatment: None Quality: Aching, Burning Onset: Other (AFTER TAKING SPICE SAUSAGE. ) History of: Other (NECK FUSION ) Modifying Factors: Nothing Associated signs and symptoms: Other (NECK PAIN ) Past Medical History PAST MEDICAL HISTORY: HTN Past Medical History (Other): CHRONIC NECK PAIN Surgical History: Denies all surgeries Family History Family History: Reviewed,noncontributory to illness Social History Smoker: Non-Smoker Alcohol: Denies ETOH Use Drugs: Denies Drug Use Lives In: Home Constitutional: denies: chills, diaphoresis, fatigue, fever, malaise, sweats, weakness, others EENTM: reports: others (ESOPHAGUS DISCOMFORT); denies: blurred vision, double vision, ear bleeding, ear discharge, ear drainage, ear pain, ear ringing, eye pain, eye redness, hearing loss, mouth pain, mouth swelling, nasal discharge, nose bleeding, nose congestion, nose pain, photophobia, tearing, throat pain, throat swelling, voice changes Respiratory: denies: cough, hemoptysis, orthopnea, SOB at rest, shortness of breath, SOB with excertion, stridor, wheezing, others Cardiovascular: denies: chest pain, dizzy spells, diaphoresis, Dyspnea on exertion, edema, irregular heart beat, left arm pain, lightheadedness, palpitations, PND, syncope, others Gastrointestinal: denies: abdomen distended, abdominal pain, blood streaked bowels, constipated, diarrhea, dysphagia, difficulty swallowing, hematemesis, melena, nausea, poor appetite, poor fluid intake, rectal bleeding, rectal pain, vomiting, others Genitourinary: denies: burning, dysuria, flank pain, frequency, hematuria, incontinence, penile discharge, penile sore, pain, testicle pain, testicle swelling, urgency, others Neurological: denies: dizziness, fainting, headache, left sided numbness, left sided weakness, numbness, paresthesia, pre-existing deficit, right sided numbness, right sided weakness, seizure, speech problems, tingling, tremors, weakness, others Musculoskeletal: reports: muscle pain, neck pain (RADIATES TO UPPER BACK ); de nies: back pain, gout, joint pain, joint swelling, muscle stiffness, others Integumetry: denies: bruises, change in color, change in hair/nails, dryness, laceration, lesions, lumps, rash, wounds, others Allergic/Immunocompromised: denies: Difficulty Healing, Frequent Infections, Hives, Itching, others Hematologic/Lymphatic: denies: anemia, blood clots, easy bleeding, easy bruising, swollen glands, others Endocrine: denies: excessive hunger, excessive sweating, excessive thirst, excessive urination, flushing, intolerance to cold, intolerance to heat, unexplained weight gain, unexplained weight loss, others Psychiatric: denies: anxiety, bipolar disorder, depression, hopeless, panic disorder, schizophrenia, sleepless, suicidal, others All Other Systems: Reviewed and Negative Physical Exam General Appearance: No Apparent Distress, Normal HEENT: Normal ENT Inspection, PERRL/EOMI, Pharynx Normal, TMs Normal Neck: Full Range of Motion, Normal Inspection, Supple, Tender Lateral (TENDERNESS ON ANTERIOR NECK TO BACK OF NECK, NO BONY TENDERNESS, SWELLING AND DEFORMITY. ) Respiratory: Chest Non-Tender, Lungs Clear, No Accessory Muscle Use, No Respiratory Distress, Normal Breath Sounds Cardiovascular: No Edema, No JVD, No Murmur, No Gallop, Normal Peripheral Pulses, Regular Rate/Rhythm Breast Exam: Deferred Gastrointestinal: No Organomegaly, Non Tender, No Pulsatile Mass, Normal Bowel Sounds, Soft Genitalia: Deferred Pelvic: Deferred Rectal: Deferred Extremities: No calf tenderness, Normal capillary refill, Normal inspection, Normal range of motion, Non-tender, No pedal edema Musculoskeletal : Apperance: Normal Neurologic: Alert, machine fitter II-XII nml as Tested, No Motor Deficits, Normal Affect, Normal Mood, No Sensory Deficits Cerebellar Function: Normal Reflexes: Normal Skin: Dry, Normal Color, Warm Peripheral Pulses: 2+ carotid (R), 2+ carotid (L) Lymphatic: No Adenopathy Was a procedure done? Was a procedure done?: No Back Pain Differential Dx Differential Diagnosis: Musculoskeletal Pain X-Ray, Labs, Meds, VS Vital Signs Date Time Temp Pulse Resp B/P (MAP) Pulse Ox O2 Delivery O2 Flow Rate FiO2 04/07/25 08:42 97.8 70 18 126/69 (88) 97 97.8 04/07/25 08:42 70 18 97 Room Air* 0 21 04/07/25 08:12 71 04/07/25 08:06 97.8 76 20 139/81 (100) 96 97.8 Lab Test 04/07/25 08:36 Range/Units White Blood Count 8.4 4.4-10.8 10^3/uL Red Blood Count 4.86 4.5-5.90 10^6/uL Hemoglobin 14.7 13.5-17.5 g/dL Hematocrit 44.1 41.0-53.0 % Mean Corpuscular Volume 90.8 80.0-100.0 fL Mean Corpuscular Hemoglobin 30.3 28.0-32.0 pg Mean Corpuscular Hemoglobin Concent 33.4 32.0-36.0 g/dL Red Cell Distribution Width 13.8 11.8-14.3 % Platelet Count 172 140-450 10^3/uL Mean Platelet Volume 8.4 6.9-10.8 fL Neutrophils (%) (Auto) 84.8 H 37.0-80.0 % Lymphocytes (%) (Auto) 6.0 L 10.0-50.0 % Monocytes (%) (Auto) 7.5 0.0-12.0 % Eosinophils (%) (Auto) 1.4 0.0-7.0 % Basophils (%) (Auto) 0.3 0.0-2.0 % Neutrophils # (Auto) 7.1 1.6-8.6 10 ^3/uL Lymphocytes # (Auto) 0.5 0.4-5.4 10 ^3/uL Monocytes # (Auto) 0.6 0-1.3 10 ^3/uL Eosinophils # (Auto) 0.1 0-0.8 10 ^3/uL Basophils # (Auto) 0 0-0.2 10 ^3/uL Nucleated Red Blood Cells 0.0 % Sodium Level 140 136-145 mmol/L Potassium Level 4.1 3.5-5.1 mmol/L Chloride Level 102 98-107 mmol/L Carbon Dioxide Level 30 20-31 mmol/L Anion Gap 8 5-15 Blood Urea Nitrogen 17 9-23 mg/dL Creatinine 1.24 0.700-1.30 mg/dL Glomerular Filtration Rate Calc 58 >90 mL/min BUN/Creatinine Ratio 13.7 10.0-20.0 Serum Glucose 106 74-106 mg/dL Calcium Level 9.8 8.7-10.4 mg/dL Troponin I High Sensitivity 3 L </=54 ng/L EXAM: CT NECK WITHOUT CONTRAST HISTORY: ANTERIOR NECK PAIN UPPER ESOPHAGUS, NO INJURY COMPARISON: None TECHNIQUE: Helical CT images of the neck were performed without contrast. Sagittal and coronal reformatted images were obtained. This CT exam was performed using one or more of the following dose reduction techniques: Automated exposure control, adjustment of the mA and/or kV according to patient size, or use of iterative reconstruction technique. Radiation Dose Information: CT Dose: CTDI volume is 26.21 mGy. Dose-length product is 772.64 mGy*cm. FINDINGS: No radiologically significant cervical lymphadenopathy or mass. There is palatine tonsillar hypertrophy with moderate narrowing of the oropharyngeal airway. No other evidence of airway compromise. The vocal cords are symmetric. No abnormal thickening of the epiglottis. The noncontrast parotid glands, submandibular glands, and thyroid are unremarkable. There are thick atherosclerotic calcifications of the carotid bulbs. The mastoid air cells and middle ear spaces are clear. There is mucosal thickening of the bilateral maxillary sinuses. There is a dental cavity involving the left maxillary 3rd molar tooth (image 27, series 2). There are Postoperative changes of Bilateral cataract extraction surgery. There is peribronchial thickening in thelung apices. There is a partially visualized left chest pacemaker. There are postoperative changes of ACDF C4-C7. There is advanced cervical degenerative disc disease and facet arthropathy with moderate to severe spinal canal stenosis at C3-C4, moderate spinal canal stenosis at C6-C7, multilevel significant neural foraminal stenosis bilaterally. IMPRESSION: 1. No radiologically significant cervical lymphadenopathy or mass. 2. [place] tonsillar hypertrophy with narrowing of the oropharyngeal airway. 3. Mild bilateral maxillary sinus disease. 4. Carotid atherosclerosis. 5. Postoperative changes of Bilateral cataract extraction surgery, ACDF, and left chest pacemaker. 6. Advanced cervical degenerative disc disease and facet arthropathy with moderate to severe spinal canal stenosis C3-C4 and moderate spinal canal stenosis C6-C7. Recommend spinal surgery consultation for appropriate follow-up imaging and management. There is almost certainly significant mass effect on the cervical spinal cord at multiple levels. Additionally, there is multilevel significant neural foraminal stenosis bilaterally, which May correspond to bilateral upper extremity radicular symptoms. X-Ray, Labs, Meds, VS Comment EXTERNAL MEDICAL RECORDS: NONE INDEPENDENT HISTORIANS: NONE SOCIAL DETERMINANTS OF HEALTH: NONE LABS ORDERED: CBC, BMP, TROPONIN IMAGING ORDERED: CT NECK/SOFT TISSUE W/O CONTRAST REVIEWED AND INTERPRETED RESULTS: SPINAL MASS VIA CT SCAN TREATMENTS ORDERED: NONE I HAVE DISCUSSED THE IMAGING AND LAB RESULTS WITH THE PATIENT. SPINAL MASS WAS SEEN BY IMAGING AND WAS DISCUSSED WITH PATIENT. I WANTED TO ADMIT THE PATIENT AND PATIENT REFUSED. PATIENT DECLINED ADMISSION AND WANTS TO FOLLOW UP WITH PCP, DR. PAVON. PATIENT SIGNED OUT FROM ED AMA. Images Reviewed?: Images reviewed and evaluated by me Time of 1ST Reevaluation: 10:00 Reevaluation 1ST: Unchanged Patient Education/Counseling: Diagnosis, Treatment Family Education/Counseling: Diagnosis, Treatment SEPSIS Sepsis Screen Physician Orders Neck Without Contrast (04/07/25 08:10) Electrocardigram (04/07/25 08:10) Vital Signs Date Time Temp Pulse Resp B/P (MAP) Pulse Ox O2 Delivery O2 Flow Rate FiO2 04/07/25 08:42 97.8 70 18 126/69 (88) 97 97.8 04/07/25 08:42 70 18 97 Room Air* 0 21 04/07/25 08:12 71 04/07/25 08:06 97.8 76 20 139/81 (100) 96 97.8 Laboratory Tests Test 04/07/25 08:36 White Blood Count 8.4 10^3/uL (4.4-10.8) Departure 1 Departure Time of Disposition: 10:00 Impression: Primary Impression: Degenerative cervical spinal stenosis Additional Impression: Cervical spinal mass Disposition: LEFT AGAINST MEDICAL ADVICE Condition: Fair Additional Instructions: Critical Care Note Critical Care Time?: No Stability Stability form required: No Heart Score Heart Score: Heart Score Response (Comments) Value History N/A 0 EKG N/A 0 Age N/A 0 Risk Factors N/A 0 Troponin N/A 0 Total 0 I personally scribed for IRINA WALLS ([email or web address]) on 04/07/25 at 08:22. Electronically submitted by Marly Kohler ([employer]). I personally scribed for IRINA WALLS ([email or web address]) on 04/07/25 at 08:56. Electronically submitted by Marly Kohler ([email or web address]). I personally scribed for IRINA WALLS ([email or web address]) on 04/07/25 at 09:50. Electronically submitted by Marly Kohler ([email or web address]). IRINA WALLS Apr 07, 2025 08:22
[2025-04-07 08:42] VITALS: BP 126/69; PULSE 70; RESP 18; TEMP 97.8; O2SAT 97
--- NOTE | 2025-04-07 08:53 | DVH ---
EXAM: CT NECK WITHOUT CONTRAST HISTORY: ANTERIOR NECK PAIN UPPER ESOPHAGUS, NO INJURY COMPARISON: None TECHNIQUE: Helical CT images of the neck were performed without contrast. Sagittal and coronal reform atted images were obtained. This CT exam was performed using one or more of the following dose reduct ion techniques: Automated exposure control, adjustment of the mA and/or kV according to patient size, or use of iterative reconstruction technique. Radiation Dose Information: CT Dose: CTDI volume is 26 .21 mGy. Dose-length product is 772.64 mGy*cm. FINDINGS: No radiologically significant cervical lymphadenopathy or mass. There is palatine tonsillar hypertrophy with moderate narrowing of the oropharyngeal airway. No other evidence of airway comprom ise. The vocal cords are symmetric. No abnormal thickening of the epiglottis. The noncontrast parotid glands, submandibular glands, and thyroid are unremarkable. There are thick atherosclerotic calcific ations of the carotid bulbs. The mastoid air cells and middle ear spaces are clear. There is mucosal thickening of the bilateral maxillary sinuses. There is a dental cavity involving the left maxillary 3rd molar tooth (image 27, series 2). There are Postoperative changes of Bilateral cataract extractio n surgery. There is peribronchial thickening in thelung apices. There is a partially visualized left chest pacemaker. There are postoperative changes of ACDF C4-C7. There is advanced cervical degenerat manuel disc disease and facet arthropathy with moderate to severe spinal canal stenosis at C3-C4, modera te spinal canal stenosis at C6-C7, multilevel significant neural foraminal stenosis bilaterally. IMPRESSION: 1. No radiologically significant cervical lymphadenopathy or mass. 2. [place] tonsillar hypertrophy with narrowing of the oropharyngeal airway. 3. Mild bilateral maxillary sinus disease. 4. Carotid atherosclerosis. 5. Postoperative changes of Bilateral cataract extraction surgery, ACDF, and left chest pacemaker. 6. Advanced cervical degenerative disc disease and facet arthropathy with moderate to severe spinal c anal stenosis C3-C4 and moderate spinal canal stenosis C6-C7. Recommend spinal surgery consultation for appropriate follow-up imaging and management. There is almost certainly significant mass effect o n the cervical spinal cord at multiple levels. Additionally, there is multilevel significant neural f oraminal stenosis bilaterally, which May correspond to bilateral upper extremity radicular symptoms.
[2025-04-07 09:01] LABS: Hematocrit 44.1 % (41.0-53.0); Hemoglobin 14.7 g/dL (13.5-17.5); Mean Corpuscular Hemoglobin 30.3 pg (28.0-32.0); Mean Corpuscular Volume 90.8 fL (80.0-100.0); Nucleated Red Blood Cells % 0.0 %
[2025-04-07 09:18] LABS: Chloride 102 mmol/L (98-107); Potassium 4.1 mmol/L (3.5-5.1); Sodium 140 mmol/L (136-145)
[2025-04-07 09:19] LABS: Anion Gap 8 (5-15); Carbon Dioxide 30 mmol/L (20-31)
[2025-04-07 09:20] LABS: Calcium 9.8 mg/dL (8.7-10.4)
[2025-04-07 09:24] LABS: BUN/Creatinine Ratio 13.7 (10.0-20.0); Blood Urea Nitrogen 17 mg/dL (9-23); Glucose 106 mg/dL (74-106)
--- NOTE | 2025-04-10 11:46 | ECG ---
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
== END 2025-04-07 09:45 | disposition left against medical advice (07) ==
LOC: ER 07:53
DX: M48.02 Spinal stenosis, cervical region (principal); I10 Essential (primary) hypertension; G89.29 Other chronic pain; Z79.899 Other long term (current) drug therapy; Z95.0 Presence of cardiac pacemaker; Z91.030 Bee allergy status; Z91.040 Latex allergy status; Z91.018 Allergy to other foods
CPT/HCPCS: 36415; 70490; 80048; 84484; 85025; 93005

== ENCOUNTER 2025-06-08 09:43 | Outpatient (CLI) | payer OTHER ==
[2025-06-08 10:48] LABS: Calcium 9.1 mg/dL (8.7-10.4); Chloride 103 mmol/L (98-107); Potassium 4.0 mmol/L (3.5-5.1); Sodium 140 mmol/L (136-145)
[2025-06-08 10:49] LABS: Anion Gap 8 (5-15); Carbon Dioxide 29 mmol/L (20-31)
[2025-06-08 10:54] LABS: BUN/Creatinine Ratio 14.0 (10.0-20.0); Blood Urea Nitrogen 16 mg/dL (9-23); Glucose 76 mg/dL (74-106); Triglycerides 113 mg/dL (< 150)
[2025-06-08 10:56] LABS: Cholesterol 138 mg/dL (< 200); HDL Cholesterol 46 mg/dL (40-59)
== END 2025-06-08 17:00 | disposition home or self-care (01) ==
LOC: LAB 09:43
PROVIDERS: ATTEND Internal Medicine
DX: E11.22 Type 2 diabetes mellitus with diabetic chronic kidney disease (principal); N18.31 Chronic kidney disease, stage 3a; J44.9 Chronic obstructive pulmonary disease, unspecified
CPT/HCPCS: 36415; 80048; 80061; 82306; 82607; 84443

== ENCOUNTER 2025-08-10 09:19 | Emergency (ER) | payer OTHER ==
[~2025-08-10] VITALS: Ht 177.8 cm; Wt 89.7 kg
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
[2025-08-10 10:06] LABS: Hematocrit 42.3 % (41.0-53.0); Hemoglobin 14.4 g/dL (13.5-17.5); Mean Corpuscular Hemoglobin 31.7 pg (28.0-32.0); Mean Corpuscular Volume 93.4 fL (80.0-100.0); Nucleated Red Blood Cells % 0.0 %
[2025-08-10 10:22] LABS: Urine Protein, UAD Negative (Negative)
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
[2025-08-10 10:33] LABS: Albumin 4.5 g/dL (3.2-4.8); Alkaline Phosphatase 73 U/L (46-116); Anion Gap 9 (5-15); BUN/Creatinine Ratio 9.7 (10.0-20.0); Bilirubin, Total 0.6 mg/dL (0.2-1.0); Calcium 9.2 mg/dL (8.7-10.4); Carbon Dioxide 28 mmol/L (20-31); Chloride 102 mmol/L (98-107); Glucose 93 mg/dL (74-106); Potassium 5.1 mmol/L (3.5-5.1); Sodium 139 mmol/L (136-145); Total Protein 7.0 g/dL (5.7-8.2)
[2025-08-10 10:34] LABS: Alanine Aminotransferase 11 U/L (7-40); Blood Urea Nitrogen 14 mg/dL (9-23)
[2025-08-10 10:52] VITALS: BP 126/76; PULSE 68; RESP 17; TEMP 97.8; O2SAT 97
== END 2025-08-10 10:54 | disposition home or self-care (01) ==
LOC: ER 09:19
DX: S16.1XXA Strain of muscle, fascia and tendon at neck level, initial encounter (principal); G44.319 Acute post-traumatic headache, not intractable; I10 Essential (primary) hypertension; Z79.899 Other long term (current) drug therapy; Z91.048 Other nonmedicinal substance allergy status; Z91.040 Latex allergy status; Z91.030 Bee allergy status; V43.52XA Car driver injured in collision with other type car in traffic accident, initial encounter; Y93.89 Activity, other specified; Y92.488 Other paved roadways as the place of occurrence of the external cause; Y99.8 Other external cause status
CPT/HCPCS: 36415; 70450; 80053; 81001; 85025

== ENCOUNTER 2025-09-03 15:44 | Emergency (ER) | payer OTHER ==
[~2025-09-03] VITALS: Ht 177.8 cm; Wt 89.8 kg
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
[2025-09-03 19:12] VITALS: BP 130/61; PULSE 72; RESP 19; TEMP 97.8; O2SAT 95
--- NOTE | 2025-09-04 07:23 | ECG ---
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
== END 2025-09-03 19:21 | disposition home or self-care (01) ==
LOC: ER 15:44
DX: M94.0 Chondrocostal junction syndrome [Tietze] (principal); I10 Essential (primary) hypertension; M19.90 Unspecified osteoarthritis, unspecified site; Z79.899 Other long term (current) drug therapy; Z95.0 Presence of cardiac pacemaker; Z91.040 Latex allergy status; Z91.030 Bee allergy status; Z98.890 Other specified postprocedural states
CPT/HCPCS: 71111; 93005